=== PATIENT | female | born 1970 | race Native Hawaiian/Other Pacific Islander ===

== ENCOUNTER 2020-12-08 08:00 | Outpatient (CLI) | payer BC, OTHER | END 2020-12-08 16:00 | disposition home or self-care (01) | LOC: INF 08:00 | PROVIDERS: ATTEND Internal Medicine | DX: Z23 Encounter for immunization (principal) | CPT/HCPCS: 96372 ==

== ENCOUNTER 2021-01-01 12:55 | Outpatient (CLI) | payer BC, OTHER | END 2021-01-01 23:59 | disposition home or self-care (01) | LOC: INF 12:55 | PROVIDERS: ATTEND Internal Medicine | DX: Z23 Encounter for immunization (principal) | CPT/HCPCS: 96372 ==